=== PATIENT | female | born 1980 | race Caucasian/White ===

== ENCOUNTER 2021-08-30 21:32 | Emergency (ER) | payer SELFPAY ==
[~2021-08-30] VITALS: Ht 170.2 cm; Wt 79.0 kg
[2021-08-30] MEDS ORDERED: MORPHINE SULFATE 4 MG/ML CPJ (NOT FOR IM USE) IV ONE (22:15)
[2021-08-30] MEDS ORDERED: ONDANSETRON HCL 4MG/2ML INJ IV ONE (22:15)
[2021-08-31 01:45] VITALS: BP 110/65
[2021-08-31] MEDS ORDERED: HYDR-4001 MT (01:59)
[2021-08-31] MEDS ORDERED: IBUP-2028 MT (01:59)
== END 2021-08-31 02:18 | disposition home or self-care (01) ==
LOC: ER 21:32
DX: S92.215A Nondisplaced fracture of cuboid bone of left foot, initial encounter for closed fracture (principal); X50.1XXA Overexertion from prolonged static or awkward postures, initial encounter; Y93.89 Activity, other specified; Y92.018 Other place in single-family (private) house as the place of occurrence of the external cause
CPT/HCPCS: 29515; 73590; 73600; 73620; 96374; 96375; 99284; J2270; J2405